=== PATIENT | male | born 1945 | race Caucasian/White ===

== ENCOUNTER 2016-11-09 10:59 | Emergency (ER) | payer OTHER ==
[~2016-11-09] VITALS: Ht 177.8 cm; Wt 87.1 kg
--- NOTE | 2016-11-09 12:43 | ED GI/GU/ABDOMINAL COMPLAINT ---
History of Present Illness General Chief Complaint: Male Genitourinary Problems Stated Complaint: UTI?? Source: patient, old records Exam Limitations: no limitations Vital Signs & Intake/Output Vital Signs & Intake/Output Vital Signs Date Time Temp Pulse Resp B/P Pulse O2 O2 Flow FiO2 Ox Delivery Rate 11/09 1331 96.0 62 16 106/62 97 Room Air 11/09 1137 96.4 67 20 105/59 99 Room Air Room Air Allergies Coded Allergies: No Known Allergies (04/01/16) Reconcile Medications Phenazopyridine HCl (Pyridium) 200 MG TABLET 1 TAB PO TID DYSUIRA Triage Note: PT TO ED BURNING WITH URINATION X 1 WEEK. PT STATING HX OF PROSTATE 2011, CALLED DR LAZO AND TOLD TO COME TO ED. Triage Nurses Notes Reviewed? yes HPI: Patient present with a 2 day history of dysuria. Positive frequency and hesitancy. Similar symptoms in the past when his head UTIs. Patient denies any fevers or chills. There is no nausea or vomiting. Patient denies any pain except when he is urinating. Patient has not noticed any blood or blood clots in his urine. Past History Travel History Traveled to [place] past 21 day No Medical History Any Pertinent Medical History? 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 No Review of Systems Review of Systems Constitutional: Reports: no symptoms. EENTM: Reports: no symptoms. Respiratory: Reports: no symptoms. Cardiovascular: Reports: no symptoms. GI: Reports: no symptoms. Genitourinary: Reports: see HPI, dysuria. Musculoskeletal: Reports: no symptoms. Skin: Reports: no symptoms. Neurological/Psychological: Reports: no symptoms. Hematologic/Endocrine: Reports: no symptoms. Immunologic/Allergic: Reports: no symptoms. All Other Systems: Reviewed and Negative Physical Exam Physical Exam General Appearance: well developed/nourished, alert, awake, mild distress Head: atraumatic Eyes: Bilateral: PERRL, EOMI. Neck: normal inspection, supple Respiratory: normal breath sounds, chest non-tender, no respiratory distress, lungs clear Cardiovascular: regular rate/rhythm, normal peripheral pulses Gastrointestinal: normal bowel sounds, soft, non-tender, no organomegaly Back: NO cva TENDERNESS Neurologic/Psych: no motor/sensory deficits, awake, alert, oriented x 3, normal gait, normal mood/affect Core Measures ACS in differential dx? No Severe Sepsis Present: No Septic Shock Present: No Progress Differential Diagnosis: urinary retention, UTI/pyelo Plan of Care: Orders Procedure Date/time Status Add-on Test (ER Only) 11/09 1330 Active URINALYSIS 11/09 1138 Complete Laboratory Tests 11/09/16 1237: Urine Color YEL, Urine Clarity CLEAR, Urine pH 7.0, Ur Specific [place] 1.015, Urine Protein NEG, Urine Ketones NEG, Urine Nitrite NEG, Urine Bilirubin NEG, Urine Urobilinogen 0.2, Ur Leukocyte Esterase NEG, Ur Microscopic SEDIMENT EXAMINED, Urine RBC 10-15 H, Urine WBC 5-10 H, Ur Epithelial Cells FEW, Urine Bacteria RARE H, Hyaline Casts 3-5 H, Urine Hemoglobin TRACE-INTACT H, Urine Glucose NEG Initial ED EKG: none Comments: Post void residual 0. Departure Departure Disposition: HOME OR SELF CARE Condition: Stable Clinical Impression Primary Impression: Dysuria Referrals: TOMASZ DOMINIQUE,GURMEET Frausto (PCP/Family) Additional Instructions: Follow-up with Dr. Lazo. Take Pyridium as prescribed. The Pyridium will turn all other body fluids orange including tears and your urine. Return if he develop any fevers or chills, nausea or vomiting or for any concerns. Departure Forms: Customer Survey General Discharge Information Prescriptions: Current Visit Scripts Phenazopyridine HCl (Pyridium) 1 TAB PO TID #9 TAB
[2016-11-09 13:31] VITALS: BP 106/62
[2016-11-09] MEDS ORDERED: PYRIDIUM200 M1 PO (13:38)
== END 2016-11-09 13:44 ==
LOC: ERH 10:59
DX: R30.0 Dysuria (principal)
CPT/HCPCS: 81001

== ENCOUNTER → 2017-02-18 | Day surgery (SDC) | payer OTHER ==
[~2017-02-18] VITALS: Ht 180.3 cm; Wt 87.1 kg
[~2017-02-18] MED LIST: AMBIEN10 M1 PO; ATORVASTATIN CA80 M1 PO; BROMSITE5 ML OS; DULOXETINE HCL20 MG PO; METOPROLOL ER PO; MYRBETRIQ25 M1 PO; NITROGLYCERIN1 EAC3 TD; PYRIDIUM200 M1 PO; RANEXA1000 M1 PO; VALSARTAN-HCTZ1 EAC2 PO
--- NOTE | 2017-02-18 14:07 | Operative Report ---
Operative/Inv Procedure Report Surgery Date: 02/18/17 Name of Procedure: cystoscopY; laser urethral stricturotomy Pre-Operative Diagnosis: urethral stricture Post-Operative Diagnosis: same Estimated Blood Loss: scant Surgeon/Poultry Culler: LAURI GREER MD Anesthesia: moderate sedation Drains: 16 fr. minto tip. Complications: none Operative/Procedure Note Note: The patient was taken to the operating room and placed on the OR table in supine position. Timeout was performed, with the patient awake, in order to confirm, and other pertinent perioperative information. After adequate anesthesia and antibiotics the patient was then placed lithotomy stirrups draped and prepped in usual surgical fashion. A 22 German cystoscope sheath with a 30 angle lens was inserted under direct visualization. Upon entering the distal bulbar urethra, a narrow stricture/scar tissue was seen with a very narrow lumen. A 0.038 Glidewire was inserted into the cystoscope and advanced into the narrow aperture without difficulty. At this point the diode laser was then inserted through the LASER cystoscope. The laser fiber was extended beyond the cystoscope, and positioned away from the gluide wire that was directly visible. With the laser fiber placed at the 12 o'clock position in direct contact with the stricture, the laser was fired in order to create a stricturotomy at the 12 o'clock position of the scar tissue. The laser was disengaged and removed. The 26 Fr. laser cystoscope was then able to enter the bulbar urethra, through the obstructing prostate, and the bladder without significant difficulty. The bladder was noted to be free of tumor, free of stone, with signficant trabeculation, and was then drained via the cystoscope. The cystoscope was then retracted back to the level of the urethral stricture. The cystoscope was then removed. A 20Fr./5cc costello was inserted easily draining clear fluid, and the balloon was filled with 5cc sterile water. All sponge needle and instrument count were correct at the of the case. The patient tolerated procedure was then taken to the recovery room in satisfactory condition. His discharge home with antibiotics and pain medication, and to follow up in 1-2 weeks' time. Discharge Disposition: Same Day Admissions CC: LAURI GREER MD
== END ==
LOC: STS 03:08
DX: N35.9 Urethral stricture, unspecified (principal); N40.1 Benign prostatic hyperplasia with lower urinary tract symptoms; R39.12 Poor urinary stream; Z85.46 Personal history of malignant neoplasm of prostate; I10 Essential (primary) hypertension
CPT/HCPCS: 36415; 93005; 93010; J0131; J1885; J2250

== ENCOUNTER → 2017-10-07 | Day surgery (SDC) | payer OTHER ==
[~2017-10-07] VITALS: Ht 180.3 cm; Wt 87.1 kg
[~2017-10-07] MED LIST changes: +MULTIVITAMINS1 EAC9 PO; +TOPROL XL25 M1 PO
[2017-10-07 09:57] LABS: ABSOLUTE BASOPHIL COUNT 0 /CUMM (0.0-0.2); ABSOLUTE EOSINOPHIL COUNT 0.2 /CUMM (0.0-0.7); ABSOLUTE GRANULOCYTE CT 4.2 /CUMM (1.4-6.5); ABSOLUTE LYMPH COUNT 1.4 /CUMM (1.2-3.4); ABSOLUTE MONOCYTE COUNT 0.6 /CUMM (0.10-0.60); BASOPHIL % 0.5 % (0.0-2.0); EOSINOPHIL % 3.6 % (0-5); GRANULOCYTE % 65.6 % (42.2-75.2); HEMATOCRIT 47.6 % (42-52); MEAN CORPUSCULAR HGB 32.3 PG (27.0-31.0); MEAN CORPUSCULAR HGB CONC 34.5 G/DL (33.0-37.0); MEAN CORPUSCULAR VOLUME 93.6 FL (80.0-94.0); MEAN PLATELET VOLUME 8.4 FL (7.4-10.4); PLATELET COUNT 130 /CUMM (130-400); RBC DISTRIBUTION WIDTH 12.9 % (11.5-14.5); RED BLOOD CELL CT 5.09 /CUMM (4.70-6.10); WHITE BLOOD CELL COUNT 6.4 /CUMM (4.8-10.8)
--- NOTE | 2017-10-14 08:06 | Operative Report ---
Operative/Inv Procedure Report Surgery Date: 10/07/17 Name of Procedure: DVIU with diode laser, cystoscopy. Pre-Operative Diagnosis: bulbar urethral stricture. Post-Operative Diagnosis: same Estimated Blood Loss: scant Surgeon/Electromedical Service Engineer: Bharat Lazo MD Anesthesia: moderate sedation Drains: 20Fr. costello Complications: none Condition: improved Operative Indication: dribbling, weak stream. Operative/Procedure Note Note: The patient was taken to the operating room and placed on the OR table in supine position. Timeout was performed, with the patient awake, in order to confirm, and other pertinent perioperative information. After adequate anesthesia, and antibiotics, the patient was then placed lithotomy stirrups draped and prepped in usual surgical fashion. A 26 Telugu LASER continuous flow cystoscope sheath with a 30 angle lens was inserted under direct visualization. Upon entering the distal bulbar urethra, a narrow stricture/scar tissue was seen with a very narrow lumen. A 0.038 Glidewire was inserted into the cystoscope, and was barely advanced into the narrow aperture without difficulty. At this point the diode laser was then inserted through the LASER cystoscope. The diode laser fiber was extended beyond the cystoscope, and positioned away from the gluide wire that was directly visible. With the laser fiber side firing aperture positioned at the 12 o'clock, the laser was activated. The diode laser was easily able to create a stricturotomy at the 12 o'clock position of the urethral scar tissue. Hemostasis was evident. The laser fiber was disengaged and removed. The 26 Fr. laser cystoscope was then able to enter the now open bulbar urethra, and into the bladder without significant difficulty. The bladder was noted to be free of tumor, free of stone, with signficant trabeculation. The guide wire was then reinserted through the cystoscope, and left in place, as the cystoscope was removed. A 20 Fr. [place] tip costello was rail-roaded over the wire, into the bladder draining clear fluid. The [place] tip costello balloon was filled with 5cc sterile water, then the guide wire was removed. All sponge needle and instrument count were correct at the of the case. The patient tolerated procedure well, and was then taken to the recovery room in satisfactory condition. His discharge home with antibiotics and pain medication , and to follow up in 2 weeks' time. Findings: tight bulbar urethral stricture Discharge Disposition: Same Day Admissions CC: [place] DOMINIQUE,Bharat
== END ==
LOC: STS 01:34
PROVIDERS: Urology
DX: N35.9 Urethral stricture, unspecified (principal); N40.1 Benign prostatic hyperplasia with lower urinary tract symptoms; R39.14 Feeling of incomplete bladder emptying; Z85.46 Personal history of malignant neoplasm of prostate; I10 Essential (primary) hypertension
CPT/HCPCS: 36415; 93005; 93010; J2250

== ENCOUNTER 2017-10-17 12:03 | Emergency (ER) | payer OTHER ==
[~2017-10-17] VITALS: Ht 177.8 cm; Wt 82.6 kg
[2017-10-17 12:24] VITALS: BP 136/82
--- NOTE | 2017-10-17 13:35 | ED GENERAL ADULT ---
History of Present Illness General Chief Complaint: General Adult Stated Complaint: GEN ADULT - DOES NOT LIKE PO MEDS Source: patient, old records Exam Limitations: no limitations Vital Signs & Intake/Output Vital Signs & Intake/Output Vital Signs Date Time Temp Pulse Resp B/P B/P Pulse O2 O2 Flow FiO2 Mean Ox Delivery Rate 10/17 1525 97 Room Air 10/17 1224 96.9 96 16 136/82 96 Room Air Room Air Allergies Coded Allergies: No Known Allergies (04/01/16) Reconcile Medications Atorvastatin Calcium 80 MG TABLET 1 TAB PO DAILY CHOLESTEROL (Reported) Duloxetine HCl 20 MG CAPSULE.DR 1 CAP PO DAILY ANXIETY (Reported) Metoprolol Succ XL (Toprol XL) 25 MG TAB 1 TAB PO DAILY HEART/BP (Reported) Multiple Vitamin (Multivitamins) 1 EACH TABLET 1 TAB PO DAILY SUPPLEMENT ( Reported) Valsartan/Hydrochlorothiazide (Valsartan-Hctz 160-25 MG Tab) 160 MG-25 MG TABLET 1 TAB PO DAILY BP (Reported) Zolpidem Tartrate (Ambien) 10 MG TABLET 1 TAB PO PRN SLEEP (Reported) Triage Note: TRIAGE: 72 Y/O MALE PRESENTS S/P RECENT CYSTOSCOPY BUT CANNOT TOLERATE PO ANTIBIOTICS. "I CANNOT TAKE THESE PILLS ANY LONGER. MY FACE IS RED, ETC." Triage Nurses Notes Reviewed? yes HPI: 72-year-old male history of coronary artery disease, recurrent urethral stricture for which she was recently dilated by Dr. Lazo last week which he has been on Cipro and Augmentin presents emergency room for evaluation stating that he has had redness to his face and has felt off balance on antibiotics. The patient denies any difficulty swallowing or difficulty breathing. No nausea vomiting diarrhea no shortness of breath. No urinary retention dysuria urgency frequency. Fever chills he is not call Dr. Lazo He has had several urethral strictures in the past (Nova CARNES,Jose) Past History Travel History Traveled to [place] past 21 day No Medical History Any Pertinent Medical History? 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 No (Jose Rashid) Review of Systems Review of Systems Constitutional: Reports: see HPI. Comments Review of systems: See HPI, All other systems negative. Constitutional, no chills no fever, HEENT: no sore throat no congestion Cardiovascular: No chest pain , Skin: no rashes, no change in skin Respiratory: No dyspnea no cough no sputum GI: No nausea no vomiting, no diarrhea, : No dysuria No hematuria, no frequency Muscle skeletal: No joint pain, no back pain Neurologic: , no headache Heme/endocrine: No bruising Immunology: No lymphadenopathy (Jose Rashid) Physical Exam Physical Exam General Appearance: well developed/nourished, no apparent distress, alert Comments: Well-developed well-nourished patient in no apparent distress. HEENT: Atraumatic, extraocular motion intact no trismus no uvula displacement pharynx is normal no drooling no change in voice Neck: Supple, FROM Back: FROM Cardiovascular: Regular rate and rhythms no murmur Respiratory: No respiratory distress. Patient speaking in full complete sentences. Breath sounds clear to auscultation bilaterally: NO W/R/R Abdomen: Soft nontender no rebound no guarding Extremities: full range of motion Neuro: awake, alert, and oriented to person, place and time. There were no obvious focal neurologic abnormalities. Skin: Warm & dry;No appreciable rash on exposed skin, no urticaria Psych: Mood affect normal, normal memory normal judgment. Core Measures ACS in differential dx? No CVA/TIA Diagnosis: No Sepsis Present: No Sepsis Focused Exam Completed? No (Jose Rashid) Progress Differential Diagnoses I considered the following diagnoses in my evaluation of the patient: Urinary retention UTI pyelonephritis adverse reaction to medication allergic reaction anaphylaxis Plan of Care: Orders Procedure Date/time Status CULTURE,URINE 10/17 1344 Active URINALYSIS 10/17 1335 Complete COMPREHENSIVE METABOLIC PANEL 10/17 1335 Complete CBC WITHOUT DIFFERENTIAL 10/17 1335 Complete Laboratory Tests 10/17/17 1520: Anion Gap 13, Estimated GFR > 60, BUN/Creatinine Ratio 37.3 H, Glucose 108 H, Calcium 10.1, Total Bilirubin 0.5, AST 27, ALT 64, Alkaline Phosphatase 104, Total Protein 7.3, Albumin 4.4, Globulin 2.9, Albumin/Globulin Ratio 1.5, CBC w Diff NO MAN DIFF REQ, RBC 4.93, MCV 94.4 H, MCH 31.4 H, MCHC 33.3, RDW 13.1, MPV 8.6, Gran % 71.2, Lymphocytes % 17.0 L, Monocytes % 8.7, Eosinophils % 2.8, Basophils % 0.3, Absolute Granulocytes 4.6, Absolute Lymphocytes 1.1 L, Absolute Monocytes 0.6, Absolute Eosinophils 0.2, Absolute Basophils 0, Urine Color YEL, Urine Clarity CLEAR, Urine pH 6.0, Ur Specific [place] 1.025, Urine Protein NEG, Urine Ketones NEG, Urine Nitrite NEG, Urine Bilirubin NEG, Urine Urobilinogen 0.2, Ur Leukocyte Esterase NEG, Ur Microscopic SEDIMENT EXAMINED, Urine RBC FEW H, Urine WBC 1-3 H, Ur Epithelial Cells RARE, Urine Bacteria RARE H, Hyaline Casts RARE H, Urine Mucus RARE, Urine Hemoglobin SMALL H, Urine Glucose NEG Microbiology 10/17 1520 URINE ROUT: Urine Culture - RECD Patient is resting in no apparent distress no signs of an allergic reaction no rash labs ordered. Case discussed with Dr. Caldera agrees with plan I spoke with Dr. lazo- regarding the patient agrees with plan Will have him stop both antibiotics I spoke with Dr. Lazo regarding all the patient's labs he advised given the negative urine culture from last week to stop both antibiotics and have the patient follow-up with him. Case discussed with Dr. Caldear agrees with plan I discussed with the patient at length all of their results. I had an extensive conversation regarding need for close follow up with their primary care physician this week as well as return precautions. I answered all of their questions, they feel comfortable with the plan and follow-up care. Initial ED EKG: none (Jose Rashid) Departure Departure Disposition: HOME OR SELF CARE Condition: Stable Clinical Impression Primary Impression: Adverse reaction to antibiotic Referrals: [place] DOMINIQUE,Bharat Hines MD,Vincent Frausto (PCP/Family) Additional Instructions: Follow-up with your primary care physician and Dr. Lazo this week. Stop both antibiotics. Return anytime sooner with any concerns. Departure Forms: Customer Survey General Discharge Information (Jose Rashid) PA/REGIONAL ENGAGEMENT CONSULTANT Co-Sign Statement Statement: ED Attending supervision documentation- [] I saw and evaluated the patient. I have also reviewed all the pertinent lab results and diagnostic results. I agree with the findings and the plan of care as documented in the PA's/REGIONAL ENGAGEMENT CONSULTANT's documentation. [x] I have reviewed the ED Record and agree with the PA's/REGIONAL ENGAGEMENT CONSULTANT's documentation. [] Additions or exceptions (if any) to the PAs/REGIONAL ENGAGEMENT CONSULTANT's note and plan are summarized below: [] (Werner BRASHER,Hilario Olivier) Critical Care Note Critical Care Note Critical Care Time: non-applicable (Jose Rashid)
[2017-10-17 15:48] LABS: ABSOLUTE BASOPHIL COUNT 0 /CUMM (0.0-0.2); ABSOLUTE EOSINOPHIL COUNT 0.2 /CUMM (0.0-0.7); ABSOLUTE GRANULOCYTE CT 4.6 /CUMM (1.4-6.5); ABSOLUTE LYMPH COUNT 1.1 /CUMM (1.2-3.4); ABSOLUTE MONOCYTE COUNT 0.6 /CUMM (0.10-0.60); BASOPHIL % 0.3 % (0.0-2.0); EOSINOPHIL % 2.8 % (0-5); GRANULOCYTE % 71.2 % (42.2-75.2); HEMATOCRIT 46.5 % (42-52); MEAN CORPUSCULAR HGB 31.4 PG (27.0-31.0); MEAN CORPUSCULAR HGB CONC 33.3 G/DL (33.0-37.0); MEAN CORPUSCULAR VOLUME 94.4 FL (80.0-94.0); MEAN PLATELET VOLUME 8.6 FL (7.4-10.4); PLATELET COUNT 162 /CUMM (130-400); RBC DISTRIBUTION WIDTH 13.1 % (11.5-14.5); RED BLOOD CELL CT 4.93 /CUMM (4.70-6.10); WHITE BLOOD CELL COUNT 6.4 /CUMM (4.8-10.8)
== END 2017-10-17 16:22 ==
LOC: ERH 12:03
PROVIDERS: Physician Assistant Medical
DX: T36.95XA Adverse effect of unspecified systemic antibiotic, initial encounter (principal)
CPT/HCPCS: 81001; 87086

== ENCOUNTER 2018-03-01 18:13 | Inpatient (IN) | payer OTHER ==
[~2018-03-01] VITALS: Ht 180.3 cm; Wt 87.1 kg
[~2018-03-01 18:13] MED LIST changes: +FINASTERIDE5 M1 PO; +NITROGLYCERIN1 EACH TOP; +OXYBUTYNIN CHLOR5 M2 PO
--- NOTE | 2018-03-01 19:56 | ULTRASOUND REPORT ---
EXAMINATION: US RETROPERITONEAL COMPLETE (RENAL) CLINICAL INFORMATION: Persistent UTI. COMPARISON: Renal ultrasound March 10, 2016 TECHNIQUE: Real-time imaging of the kidneys and bladder. FINDINGS: RIGHT KIDNEY: 11.9 x 5.4 x 5.7 cm (SAG x AP x TRV). The kidney is normal in size, contour, and echogenicity. Renal cortical thickness is normal. No calculi or focal parenchymal lesions. No hydronephrosis. LEFT KIDNEY: 12.1 x 6.5 x 4.9 cm (SAG x AP x TRV). The kidney is normal in size, contour, and echogenicity. Renal cortical thickness is normal. No calculi or focal parenchymal lesions. No hydronephrosis. BLADDER: Well-distended and normal. Bilateral ureteral jets are demonstrated. Prevoid bladder volume is 342 mL. Postvoid bladder volume is 155 mL. The prostate could not be visualized-no prostatic tissue is seen. IMPRESSION: The kidneys appear normal. There is a large 155 cc post void residual. The prostate was not visualized..
--- NOTE | 2018-03-01 20:07 | ED GENERAL ADULT ---
History of Present Illness General Chief Complaint: General Adult Stated Complaint: RETURNED FOR ADMIT Source: patient Exam Limitations: no limitations Vital Signs & Intake/Output Vital Signs & Intake/Output Vital Signs Date Time Temp Pulse Resp B/P B/P Pulse O2 O2 Flow FiO2 Mean Ox Delivery Rate 03/01 2258 98.2 78 18 118/62 93 03/01 2201 97.8 78 18 134/78 97 Room Air 03/01 1947 Room Air 03/01 1823 97.1 86 18 121/60 94 Room Air Allergies Coded Allergies: No Known Allergies (04/01/16) Reconcile Medications Atorvastatin Calcium 80 MG TABLET 1 TAB PO DAILY CHOLESTEROL (Reported) Duloxetine HCl 20 MG CAPSULE.DR 1 CAP PO DAILY ANXIETY (Reported) Finasteride 5 MG TABLET 1 TAB PO DAILY BPH (Reported) Metoprolol Succ XL (Toprol XL) 25 MG TAB 1 TAB PO DAILY HEART/BP (Reported) Nitroglycerin (Nitroglycerin Patch) 0.4 MG/HOUR PATCH.TD24 1 PAT TOP DAILY HEART (Reported) Oxybutynin Chloride 5 MG TABLET 1 TAB PO DAILY BLADDER (Reported) Valsartan/Hydrochlorothiazide (Valsartan-Hctz 160-25 MG Tab) 160 MG-25 MG TABLET 1 TAB PO DAILY BP (Reported) Zolpidem Tartrate (Ambien) 10 MG TABLET 1 TAB PO PRN SLEEP (Reported) Triage Note: PT SEEN IN ER EARLIER AND WAS BEING ADMITTED FOR URINARY PROBLEMS, HAD TO LEAVE DUE TO HE HAD TOFIND SOMEWHERE FOR HIS DOGS, PT RETURNS FOR ADMISSION Triage Nurses Notes Reviewed? yes Onset: Gradual Duration: week(s): Timing: constant HPI: 73-year-old male with a history of BPH and recurrent UTIs sent in by Dr. Lazo for admission and IV antibiotics after 2 courses of failed outpatient oral antibiotics. Patient has recently failed a course of ciprofloxacin and Augmentin. Continues to have dysuria, penile pain, and urinary frequency/ urgency. Denies fevers, nausea, vomiting, hematuria. Patient was recently seen in the emergency department today for the same, but had to leave and arrange care for his pet, and now returns for evaluation. (Kiara CARNES,Lore) Past History Travel History Traveled to [place] past 21 day No Medical History Any Pertinent Medical History? 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 No (Lore Blanco) Review of Systems Review of Systems Constitutional: Reports: no symptoms. EENTM: Reports: no symptoms. Respiratory: Reports: no symptoms. Cardiovascular: Reports: no symptoms. GI: Reports: no symptoms. Genitourinary: Reports: see HPI. Musculoskeletal: Reports: no symptoms. Skin: Reports: no symptoms. Neurological/Psychological: Reports: no symptoms. Hematologic/Endocrine: Reports: no symptoms. Immunologic/Allergic: Reports: no symptoms. All Other Systems: Reviewed and Negative (Lore Blanco) Physical Exam Physical Exam General Appearance: well developed/nourished, no apparent distress, alert, awake , comfortable Head: atraumatic, normal appearance Eyes: Bilateral: normal appearance. Neck: normal inspection Respiratory: normal breath sounds, lungs clear Cardiovascular: regular rate/rhythm Gastrointestinal: soft, non-tender Back: normal inspection, no CVA tenderness Extremities: normal inspection Neurologic/Psych: awake, alert, oriented x 3, normal gait, normal mood/affect Skin: intact, normal color, warm/dry Core Measures ACS in differential dx? No CVA/TIA Diagnosis: No Sepsis Present: No Sepsis Focused Exam Completed? No (Lore Blanco) Progress Differential Diagnoses I considered the following diagnoses in my evaluation of the patient: [UTI versus renal abscess, low concern for pyelonephritis versus dehydration versus sepsis] Plan of Care: Orders Procedure Date/time Status Heart Healthy Diet 03/02 B Active CBC WITHOUT DIFFERENTIAL 03/02 600 Active BASIC ELECTROLYTES PLUS BUN&CR 03/02 600 Active Pathway - chart 03/01 230 Active House Staff 03/01 230 Active Code Status 03/01 2304 Active Weight 03/01 223 Complete Vital Signs 03/01 2234 Active Teach/Educate 03/01 2234 Active Pain Treatment and Response 03/01 2234 Active Nutritional Intake, Monitor 03/01 2234 Active Isolation 03/01 2234 Active Intake & Output 03/01 2234 Active Patient Care Conference 03/01 2234 Active Activity/Ambulation 03/01 2234 Active Patient Data 03/01 2052 Active ED Holding Orders 03/01 2042 Active Admit to inpatient 03/01 2042 Active Vital Signs 03/01 2042 Complete Code Status 03/01 2042 Complete Intake & Output 03/01 1947 Active VTE Mechanical Prophylaxis 03/01 UNK Active Vital Signs 03/01 UNK Active Current Medications Sig/Boo Start time Last Medication Dose Stop Time Status Admin Nitroglycerin 0.4 MG Q48 03/03 900 UNVr (Transderm Nitro 10MG (0.4 MG/Hr) Patch) Zolpidem Tartrate 10 MG QPM 03/02 2100 UNVr (Ambien) Atorvastatin Calcium 80 MG DAILY 03/02 900 UNVr (Lipitor) Duloxetine HCl 20 MG DAILY 03/02 900 UNVr (Cymbalta) Enoxaparin Sodium 40 MG DAILY 03/02 900 AC (Lovenox) Finasteride 5 MG DAILY 03/02 900 UNVr (Proscar) Losartan Potassium 50 MG DAILY 03/02 900 UNVr (Cozaar) Metoprolol Succinate 25 MG DAILY 03/02 900 UNVr (Toprol XL) Acetaminophen 650 MG Q6P PRN 03/01 2315 AC (Tylenol) Morphine Sulfate 2 MG Q4P PRN 03/01 2315 AC (Morphine) Oxycodone/ 1 TAB Q6P PRN 03/01 2315 AC Acetaminophen (Percocet) Ultrasound was unremarkable, no signs of renal or bladder abscess. UA is suspicious for UTI, culture sent, and patient covered with IV ceftriaxone. Labs were unremarkable, no leukocytosis, normal lactate. Discussed with hospitalist and will admit to gen med, Initial ED EKG: none (Kiara CARNES,Lore) Departure Departure Disposition: STILL A PATIENT Condition: Stable Clinical Impression Primary Impression: UTI (urinary tract infection) Referrals: Donny DOMINIQUE,Vincent Frausto (PCP/Family) Departure Forms: Customer Survey General Discharge Information Admission Note Spoke With: Sharath Marcelino MD Documentation of Exam: Documentation of any treatments & extenuating circumstances including Concerns Regarding Discharge (functional status, medication knowledge or non-compliance, living conditions, etc.) that warrant an admission rather than observation: [IV antibiotics, urology consultation, IV fluids, urine cultures] (Lore Blanco) PA/CUSTOMS INSPECTOR Co-Sign Statement Statement: ED Attending supervision documentation- [X] I saw and evaluated the patient. I have also reviewed all the pertinent lab results and diagnostic results. I agree with the findings and the plan of care as documented in the PA's/CUSTOMS INSPECTOR's documentation. [] I have reviewed the ED Record and agree with the PA's/CUSTOMS INSPECTOR's documentation. [] Additions or exceptions (if any) to the PAs/CUSTOMS INSPECTOR's note and plan are summarized below: [] The patient was awake alert oriented 3. No acute distress on my exam. (Werner BRASHER,Hilario Olivier) Critical Care Note Critical Care Note Critical Care Time: non-applicable (Lore Blanco)
--- NOTE | 2018-03-01 20:55 | History & Physical ---
Marlo Godoy 03/01/182053: General Information and HPI MD Statement: I have seen and personally examined DEANDRE DUTTON and documented this H&P. The patient is a 73 year old M who presented with a patient stated chief complaint of [dysuria]. Source of Information: patient Exam Limitations: no limitations History of Present Illness: 73 yo M with PMH of HTN, CAD, BPH, ureteral stricture s/p laser and urethral dilation (Sep 2017), and recurrent UTIs. He was sent in to ED by his urologist, after having two weeks of dysuria, frequency and penile pain. He came earlier to the ED but left due to his dog's ill health and returned again today. The patient says he saw his urologist last Wednesday (one week ago) after almost a week's worth of night time penile burning sensations especially after voiding. His urologist put him on Amoxicillin but patient says he persisted to have symptoms. Last night his symptoms worsened and he called his urologist in the morning who instructed him to go to the ED. His recurrent UTIs are complicated with pseudomonas sensitive to only gentamicin and aztreonam. He reports having an incident in [place] in February 2015, where he was admitted to the ICU after a urinary infection spread possibly to his blood. He reports having to get up more than 3-5 times in the night to urinate due to his BPH. He finds the post void burning excruciating. He reports having very little void volume and interrupted stream which worsens the pain. He denies hematuria or discharge. He denies systemic symptoms including headache, fever, chills, sore throat, diaphoresis, fatigue, nausea, vomiting, diarrhea, joint pain, abdominal tenderness, difficulty breathing, palpitations. Allergies/Medications Allergies: Coded Allergies: No Known Allergies (04/01/16) Home Med list Atorvastatin Calcium 80 MG TABLET 1 TAB PO DAILY CHOLESTEROL (Reported) Duloxetine HCl 20 MG CAPSULE.DR 1 CAP PO DAILY ANXIETY (Reported) Finasteride 5 MG TABLET 1 TAB PO DAILY BPH (Reported) Metoprolol Succ XL (Toprol XL) 25 MG TAB 1 TAB PO DAILY HEART/BP (Reported) Nitroglycerin (Nitroglycerin Patch) 0.4 MG/HOUR PATCH.TD24 1 PAT TOP DAILY HEART (Reported) Oxybutynin Chloride 5 MG TABLET 1 TAB PO DAILY BLADDER (Reported) Valsartan/Hydrochlorothiazide (Valsartan-Hctz 160-25 MG Tab) 160 MG-25 MG TABLET 1 TAB PO DAILY BP (Reported) Zolpidem Tartrate (Ambien) 10 MG TABLET 1 TAB PO PRN SLEEP (Reported) Past History Travel History Traveled to [place] past 21 day No Medical History Neurological: NONE EENT: NONE Cardiovascular: VALVE REPLACEMENT,ANGINA CARDIAC STENOSIS Respiratory: NONE Gastrointestinal: NONE Hepatic: NONE Renal: NONE Musculoskeletal: NONE Psychiatric: NONE Endocrine: NONE Blood Disorders: NONE Cancer(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 EENTM: Reports: see HPI. Cardiovascular: Reports: see HPI. Respiratory: Reports: see HPI. GI: Reports: see HPI. Genitourinary: Reports: see HPI. Musculoskeletal: Reports: see HPI. Skin: Reports: see HPI. Neurological/Psychological: Reports: see HPI. Hematologic/Endocrine: Reports: see HPI. Immunologic/Allergic: Reports: see HPI. All Other Systems: Reviewed and Negative Exam & Diagnostic Data Last 24 Hrs of Vital Signs/I&O Vital Signs Date Time Temp Pulse Resp B/P B/P Pulse O2 O2 Flow FiO2 Mean Ox Delivery Rate 03/018 98.2 78 18 118/62 93 03/01 2201 97.8 78 18 134/78 97 Room Air 03/01 1947 Room Air 03/01 1823 97.1 86 18 121/60 94 Room Air Intake & Output 03/02 0800 03/02 0000 03/01 1600 Intake Total 0 Output Total Balance 0 Intake, Oral 0 Patient 192 lb Weight Weight Bed scale Measurement Method Physical Exam General Appearance Alert, Oriented X3, Cooperative, No Acute Distress Skin No Rashes Skin Temp/Moisture Exam: Warm/Dry Sepsis Skin Exam (color): Normal for Ethnicity HEENT Atraumatic, PERRLA, EOMI Neck Supple Cardiovascular Regular Rate, Normal S1, Normal S2 Lungs Normal Air Movement Abdomen Normal Bowel Sounds, Soft Neurological Normal Gait, Normal Speech Extremities No Tenderness/Swelling Vascular Normal Pulses Last 24 Hrs of Labs/[place]: Microbiology 03/02 0115 URINE ROUT: Urine Culture - RECD Assessment/Plan Assessment: Urine Cx Pending CBC Pending BMP Pending US Kidney The kidneys appear normal. No hydronephrosis. There is a large 155 cc post void residual. The prostate was not visualized. Problem List: 1. UTI (failing outpatient treatment) 2. Chronic Conditions Admit to general medicine Followup urine culture with sensitivities Monitor ins and outs Bladder scan Monitor CBC and BMP Ceftazifime (may need to change) Continue home medications DVT prophylaxis Full code As Ranked By This Provider Problem List: 1. UTI (urinary tract infection) 2. Dysuria 3. Adverse reaction to antibiotic Core Measures/Misc (05/09) Acute Coronary Syndrome ACS Diagnosis: No Congestive Heart Failure Congestive Heart Failure Diagnosis No Cerebrovascular Accident CVA/TIA Diagnosis: No VTE (View Protocol) VTE Risk Factors Age>40 No Mechanical VTE Prophylaxis d/t N/A MechProphylax Ordered No VTE Pharm Prophylaxis d/t NA PharmProphylax ordered Sepsis (View protocol) Sepsis Present: No If YES complete Sepsis Event Note If YES complete Sepsis Event Note Gayathri DOMINIQUEKaren 03/01/182058: Core Measures/Misc (05/09) Sepsis (View protocol) If YES complete Sepsis Event Note If YES complete Sepsis Event Note Resident Review Statement Resident Statement: examined this patient, discussed with internet consultant, agreed with internet consultant, reviewed EMR data (avail), discussed with nursing, reviewed images Other Findings: 72-year-old male history of coronary artery disease, recurrent urethral stricture s/p cystoscopy and urethral dilatation and recurrent UTIs presents with dysuria, penile pain, and urinary frequency for the past 1 week. Per the patient he has burning with urination for the past one week and was started on Amoxicillin by Dr. Lazo, which he has been taking without any relief. Last night his symptoms got worse, with dysuria (end of urination) and penile pain. He called Dr. Lazo in the morning who sent him in for further evaluation. Denies any Fever/chills, abdominal or back pain or Nausea/Vomiting. Patient is from [facility] and has been treated there with multiple abx including cefuroxime, ciprofloxacin and gentamicin. Has a history of pseudomonal infection sensitive to amikacin and gentamicin only. Vitals on admission were temp of 96.2, heart rate 70, respiratory rate 20, BP 11 /65 and O2 sats 97% on room air. Labs showed an anion gap of 17 and BUN of 51, otherwise unremarkable. Positive UA with leukocyte esterase and 50-25 WBCs. Renal ultrasound appeared normal. Problem list; 1. UTI, failed outpatient treatment 2. Chronic medical conditions - Admit the patient to general medicine floor. - Start the patient on IV ceftazidime, if no improvement symptoms can change to gentamicin. - Follow up Urine culture - Urology consult with dr. Lazo. - Ins and outs - Monitor CBC - Vitals every shift - Continue home medications DVt prophylaxis; ALPS and S/C Lovenox Patient is full code Sharath Marcelino MD 03/01/18 2240: Core Measures/Misc (05/09) Sepsis (View protocol) If YES complete Sepsis Event Note If YES complete Sepsis Event Note Attending MD Review Statement Attending Statement Attending MD Statement: examined this patient, discuss w/resident/PA/PROFESSOR OF RELIGIOUS STUDIES, agreed w/resident/PA/PROFESSOR OF RELIGIOUS STUDIES, reviewed EMR data (avail) Attending Assessment/Plan: 73M PMH HTN, CAD, BPH, ureteral stricture s/p laser therapy in September 2017, recurrent UTI's sent in by urology for UTI failing outpatient therapy. Has 3 weeks of dysuria, hesitancy, and penile pain. No systemic symptoms or signs of sepsis. Treated with Cipro and then Augmentin with no improvement in symptoms. Exam benign, normal WBC, afebrile. Urine culture from 02/21 negative. Has a history of resistant Pseudomonas. 1. UTI 2. Failure of outpatient treatment Plan: Admit to general medicine, urine culture, Ceftazidime, continue home meds, DVT PPx.
--- NOTE | 2018-03-01 22:42 | Admission Certification ---
Admission Certification Certification Statement - As attending physician, I certify that at the time of - admission, based on clinical presentation, severity of - symptoms, need for further diagnostic testing and - therapeutic interventions, and risk of adverse outcomes - without in-hospital treatment, in my clinical assessment, - this patient requires an acute hospital stay for a minimum - of two nights or longer. I have also considered psychsocial - factors such as support system, advanced age, financial - issues, cognitive issues, and failed out-patient treatments, - past re-admission history, safety of patient, and lack of - compliance as applicable. Specific rationale supporting this admission is: UTI with history of ureteral strictures failing outpatient antibiotics x 2
[2018-03-01 22:58] VITALS: BP 118/62
[2018-03-02 05:51] VITALS: BP 130/62
[2018-03-02 08:41] LABS: ABSOLUTE BASOPHIL COUNT 0 /CUMM (0.0-0.2); ABSOLUTE EOSINOPHIL COUNT 0.2 /CUMM (0.0-0.7); ABSOLUTE GRANULOCYTE CT 3.4 /CUMM (1.4-6.5); ABSOLUTE LYMPH COUNT 1.4 /CUMM (1.2-3.4); ABSOLUTE MONOCYTE COUNT 0.6 /CUMM (0.10-0.60); BASOPHIL % 0.3 % (0.0-2.0); EOSINOPHIL % 3.4 % (0-5); HEMATOCRIT 43.4 % (42-52); MEAN CORPUSCULAR HGB 32.1 PG (27.0-31.0); MEAN CORPUSCULAR HGB CONC 34.4 G/DL (33.0-37.0); MEAN CORPUSCULAR VOLUME 93.2 FL (80.0-94.0); PLATELET COUNT 136 /CUMM (130-400); RBC DISTRIBUTION WIDTH 12.9 % (11.5-14.5); RED BLOOD CELL CT 4.66 /CUMM (4.70-6.10); WHITE BLOOD CELL COUNT 5.6 /CUMM (4.8-10.8)
--- NOTE | 2018-03-02 09:16 | PN- Housestaff ---
Marcus Perry 03/02/1815: Subjective Follow-up For: UTI failed outpt management w/ amoxicillin Subjective: Patient seen and examined at bedside. Patient was admitted last night, given ceftaz edema IV, had received 3 doses at time of interview. Patient states that he is feeling significantly better, denies any urinary complaints outside of his normal increased frequency secondary to BPH. Patient states that he did not have any pain, does not have any fevers/chills/night sweats, states good p.o. intake. Denies chest pain/shortness of breath/lower extremity edema. No acute events Review of Systems Constitutional: Reports: see HPI. Objective Last 24 Hrs of Vital Signs/I&O Vital Signs Date Time Temp Pulse Resp B/P B/P Pulse O2 O2 Flow FiO2 Mean Ox Delivery Rate 03/02 0931 60 130/62 03/02 0928 60 130/62 03/02 0551 97.5 60 20 130/62 93 Room Air 03/01 2258 98.2 78 18 118/62 93 03/01 2201 97.8 78 18 134/78 97 Room Air 03/01 1947 Room Air 03/01 1823 97.1 86 18 121/60 94 Room Air Intake & Output 03/02 1600 03/02 0800 03/02 0000 Intake Total 360 0 Output Total 450 Balance -90 0 Intake, Oral 360 0 Output, Urine 450 Patient 192 lb Weight Weight Bed scale Measurement Method Physical Exam General Appearance: Alert, Oriented X3, Cooperative, No Acute Distress Skin Temp/Moisture Exam: Warm/Dry Cardiovascular: Regular Rate, Normal S1, Normal S2 Lungs: Clear to Auscultation, Normal Air Movement Abdomen: Soft, No Tenderness, no CVA tenderness; no suprapubic tenderness Neurological: Sensation Intact Extremities: No Edema Current Medications: Current Medications Sig/Boo Start time Last Medication Dose Route Stop Time Status Admin Acetaminophen 650 MG Q6P PRN 03/01 2315 AC PO Atorvastatin Calcium 80 MG 1700 03/02 1700 AC PO Ceftazidime 1,000 MG IQ8 03/02 0000 AC 03/02 IV 0818 Ceftriaxone Sodium 0 .STK-MED ONE 03/01 2017 DC .ROUTE Ceftriaxone Sodium 1,000 MG ONCE ONE 03/01 2015 DC 03/01 IV 03/01 Docusate Sodium 100 MG DAILY 03/02 0900 AC 03/02 PO 0817 Duloxetine HCl 20 MG DAILY 03/02 900 AC PO Enoxaparin Sodium 40 MG DAILY 03/02 900 AC 03/02 SC 0818 Finasteride 5 MG DAILY 03/02 900 AC PO Losartan Potassium 50 MG DAILY 03/02 900 AC PO Metoprolol Succinate 25 MG DAILY 03/02 900 AC PO Morphine Sulfate 2 MG Q4P PRN 03/01 2315 AC IV Nitroglycerin 0.4 MG DAILY 03/02 900 AC TOP Oxycodone/ 1 TAB Q6P PRN 03/01 2315 AC 03/02 Acetaminophen PO 0058 Senna 187 MG DAILY 03/02 900 AC 03/02 PO 0817 Zolpidem Tartrate 10 MG QPM 03/02 2100 AC PO Last 24 Hrs of Lab/[place] Results Last 24 Hrs of Labs/Mics: Laboratory Tests 03/02/18 0700: Anion Gap 11, Estimated GFR > 60, BUN/Creatinine Ratio 54.0 H, CBC w Diff NO MAN DIFF REQ, RBC 4.66 L, MCV 93.2, MCH 32.1 H, MCHC 34.4, RDW 12.9, MPV 9.0, Gran % 61.0, Lymphocytes % 24.7, Monocytes % 10.6 H, Eosinophils % 3.4, Basophils % 0.3, Absolute Granulocytes 3.4, Absolute Lymphocytes 1.4, Absolute Monocytes 0.6, Absolute Eosinophils 0.2, Absolute Basophils 0 Microbiology 03/02 0115 URINE ROUT: Urine Culture - RECD Assessment/Plan Assessment: Levi is a 73-year-old man was a past medical history of hypertension, coronary artery disease, BPH, ureteral stricture status post laser therapy in September 2017, recurrent UTIs, sent by his private urologist for a UTI of these experienced for 1 week which failed outpatient therapy with amoxicillin. He is admitted for treatment of his UTI with IV antibiotics after failure of outpatient therapy #UTI DVT prophylaxis IV access Tolerating her diet Disposition Problem List: 1. UTI (urinary tract infection) Pain Ratin Pain Location: Suprapubic region Pain Goal: Pain 4 or less Pain Plan: Pain pathway Tomorrow's Labs & Rationales: Follow-up on urine culture Svitlana Decker 03/02/18 1147: Attending MD Review Statement Attending Statement Attending MD Statement: examined this patient, discuss w/resident/PA/OUTREACH CLINICIAN, agreed w/resident/PA/OUTREACH CLINICIAN, discussed with family, reviewed EMR data (avail), discussed with nursing, discussed with case mgmt, reviewed images, amended to note Attending Assessment/Plan: 73M PMH HTN, CAD, BPH, ureteral stricture s/p laser therapy in September 2017, recurrent UTI's sent in by urology for UTI failing outpatient therapy. Has 3 weeks of dysuria, hesitancy, and penile pain. Treated with Cipro and then Augmentin with no improvement in symptoms. Urine culture from 02/21 negative. Has a history of resistant Pseudomonas. Follows Dr Lazo outpatient urology. Recently seen him outpatient. 1. UTI 2. Failure of outpatient treatment Plan: Continue general medicine, urine culture, Ceftazidime, continue home meds, DVT PPx, urology consult.
[2018-03-02 15:09] VITALS: BP 130/70
[2018-03-02 21:58] VITALS: BP 110/64
[2018-03-03 05:51] VITALS: BP 118/60
--- NOTE | 2018-03-03 07:04 | PN- Housestaff ---
See Addendum Subjective Follow-up For: UTI failed outpt therapy Subjective: Patient seen and examined at bedside today. Patient states that yesterday he had one episode of burning urination. Patient states that he did not experience any frequency or urgency, but did have some pain in his penis on urination. Denies hematuria, denies strange smells. Denies discharge. No testicular pain. Patient states that he also has not had a bowel movement since Wednesday, is complaining of some abdominal fullness and distention. Patient denies any fevers/chills/chest pain/shortness of breath/lower extremity edema Review of Systems Constitutional: Reports: see HPI. Objective Last 24 Hrs of Vital Signs/I&O Vital Signs Date Time Temp Pulse Resp B/P B/P Pulse O2 O2 Flow FiO2 Mean Ox Delivery Rate 03/03 0826 70 126/72 03/03 0825 70 126/72 03/03 0551 97.8 60 20 118/60 93 Room Air 03/02 2158 97.2 68 20 110/64 94 Room Air 03/02 1509 97.4 62 16 130/70 95 Intake & Output 03/03 1600 03/03 0800 03/03 0000 Intake Total 165 Output Total 780 850 Balance -780 -685 Intake, Oral 165 Number 0 0 Bowel Movements Output, Urine 780 850 Physical Exam General Appearance: Alert, Oriented X3, Cooperative, No Acute Distress Skin: No Breakdown Skin Temp/Moisture Exam: Warm/Dry Cardiovascular: Regular Rate, Normal S1, Normal S2 Lungs: Clear to Auscultation, Normal Air Movement Abdomen: Soft, No Tenderness Neurological: Sensation Intact Extremities: No Edema, Normal Pulses Current Medications: Current Medications Sig/Boo Start time Last Medication Dose Route Stop Time Status Admin Acetaminophen 650 MG Q6P PRN 03/01 2315 AC PO Atorvastatin Calcium 80 MG 1700 03/02 1700 AC PO Bisacodyl 10 MG ONCE ONE 03/03 1045 DC MO 03/03 1046 Ceftazidime 1,000 MG IQ8 03/02 0000 AC 03/03 IV 0826 Docusate Sodium 100 MG DAILY 03/02 900 AC 03/03 PO 0825 Duloxetine HCl 20 MG DAILY 03/02 09 AC 03/03 PO 0825 Enoxaparin Sodium 40 MG DAILY 03/02 900 AC 03/03 SC 0827 Finasteride 5 MG DAILY 03/02 900 AC 03/03 PO 824 Losartan Potassium 50 MG DAILY 03/02 900 AC 03/03 PO 08 Metoprolol Succinate 25 MG DAILY 03/02 900 AC 03/03 PO 08 Morphine Sulfate 2 MG Q4P PRN 03/01 2315 AC IV Nitroglycerin 0.4 MG DAILY 03/02 900 AC TOP Oxycodone/ 1 TAB Q6P PRN 03/01 2315 AC 03/02 Acetaminophen PO 1535 Polyethylene Glycol 17 GM DAILY PRN 03/02 2330 AC 03/02 PO 233 Senna 187 MG DAILY 03/02 900 AC 03/03 PO 08 Zolpidem Tartrate 10 MG QPM 03/02 2100 AC 03/02 PO 213 Last 24 Hrs of Lab/[place] Results Last 24 Hrs of Labs/Mics: Laboratory Tests 03/02/18 1549: Urine Color YEL, Urine Clarity CLEAR, Urine pH 6.0, Ur Specific [place] 1.015, Urine Protein NEG, Urine Ketones NEG, Urine Nitrite NEG, Urine Bilirubin NEG, Urine Urobilinogen 0.2, Ur Leukocyte Esterase SMALL H, Ur Microscopic SEDIMENT EXAMINED, Urine RBC RARE, Urine WBC 1-3 H, Ur Epithelial Cells RARE, Urine Bacteria RARE H, Urine Mucus RARE, Urine Hemoglobin TRACE-INTACT H, Urine Glucose NEG Assessment/Plan Assessment: Levi is a 73-year-old man was a past medical history of hypertension, coronary artery disease, BPH, ureteral stricture status post laser therapy in September 2017, recurrent UTIs, sent by his private urologist for a UTI of these experienced for 1 week which failed outpatient therapy with amoxicillin. He is admitted for treatment of his UTI with IV antibiotics after failure of outpatient therapy #UTI - resolving. Potentially prostatitis given pt history of prostate CA, radiation, symptoms, and difficulty to treat outpatient with Cipro and then Augmentin without resolution of symptoms. Will be discharged on bactrim PO for UTI/potential prostatitis #Constipation -Given bowel regimen -Ordered suppository today -Encouraged to hydrate DVT prophylaxis IV access Tolerating regular diet Disposition- to home today Problem List: 1. UTI (urinary tract infection) Pain Ratin Pain Location: na Pain Goal: Remain pain free Pain Plan: na Tomorrow's Labs & Rationales: na
[2018-03-03 08:26] VITALS: BP 126/72
[2018-03-03] MEDS ORDERED: AUGMENTIN 875-1 EACH PO (09:56)
--- NOTE | 2018-03-03 09:58 | Patient Discharge Instructions ---
Discharge Instructions General Discharge Information Special Instructions: - Please follow up with your urologist Dr. Lazo within 1-2 weeks of discharge. - Please follow up with your primary care physician within 1-2 weeks of discharge. Inform your primary care physician of this admission to [facility]. - Continue your current medications per discharge instructions. - Please watch for these problems: Fever, Chills, Nausea, Vomiting, Shortness of Breath, Productive Cough, Chest Pain/Discomfort, Abdominal Pain, Active Bleeding or Bloody urine/stool. Diet Continue normal diet: Yes Activity Full Activity/No Limits: Yes Acute Coronary Syndrome Inclusion Criteria At DC or during hospital stay patient has or had the following: ACS DIAGNOSIS No Discharge Core Measures Meds if any: Prescribed or Continued at Discharge Meds if any: NOT Prescribed or Continued at Discharge Congestive Heart Failure Inclusion Criteria At DC or during hospital stay patient has or had the following: CHF DIAGNOSIS No Discharge Core Measures Meds if any: Prescribed or Continued at Discharge Meds if any: NOT Prescribed or Continued at Discharge Cerebrovascular accident Inclusion Criteria At DC or during hospital stay patient has or had the following: CVA/TIA Diagnosis No Discharge Core Measures Meds if any: Prescribed or Continued at Discharge Meds if any: NOT Prescribed or Continued at Discharge Venous thromboembolism Inclusion Criteria VTE Diagnosis No VTE Type NONE VTE Confirmed by (Test) NONE Discharge Core Measures - Per Current guidelines, there needs to be overlap - treatment for the first 5 days of Warfarin therapy. - If discharged on Warfarin prior to 5 days of - overlap therapy, the patient will need to be - assessed for post discharge needs including - *Post discharge parental anticoagulation - *Warfarin and/or parental anticoagulation education - *Follow up date to check INR post discharge At least 5 days overlap therapy as Inpatient No Meds if any: Prescribed or Continued at Discharge Note: Overlap Therapy is Warfarin and Anticoagulant Meds if any: NOT Prescribed or Continued at Discharge
[2018-03-03] MEDS ORDERED: BACTRIM DS TAB1 EACH PO ×2 (10:05→10:35)
--- NOTE | 2018-03-03 11:39 | Discharge Summary ---
Visit Information Visit Dates Admission Date: 03/01/18 Discharge Date: 03/03/18 Hospital Course Course Attending Physician: Svitlana Decker MD Primary Care Physician: Vincent Hines MD Hospital Course: 72-year-old male history of coronary artery disease, recurrent urethral stricture s/p cystoscopy and urethral dilatation and recurrent UTIs presents with dysuria, penile pain, and urinary frequency for the past 1 week. Per the patient he has burning with urination for the past one week and was started on Amoxicillin by Dr. Lazo, which he has been taking without any relief. Last night his symptoms got worse, with dysuria (end of urination) and penile pain. He called Dr. Lazo in the morning who sent him in for further evaluation. Denies any Fever/chills, abdominal or back pain or Nausea/Vomiting. Patient is from [facility] and has been treated there with multiple abx including cefuroxime, ciprofloxacin and gentamicin. Has a history of pseudomonal infection sensitive to amikacin and gentamicin only. Vitals on admission were temp of 96.2, heart rate 70, respiratory rate 20, BP 11 /65 and O2 sats 97% on room air. Labs showed an anion gap of 17 and BUN of 51, otherwise unremarkable. Positive UA with leukocyte esterase and 50-25 WBCs. Renal ultrasound appeared normal. Patient was admitted to the general medicine service. Patient was placed on IV ceftazidime for 3 days, and urine cultures and urinalysis was sent. Patient remained afebrile and without leukocytosis. Patient improved clinically, although had one episode of burning urination day prior to discharge. Patient also had constipation, for which he was prescribed a bowel regimen, and a suppository. UA had small leukoesterase, trace bacteria. Urine culture had no growth. Suspicion for acute bacterial prostatitis given patient's difficult to treat UTI, even though he had good clinical improvement during admission, and he was discharged with p.o. Bactrim to complete a 14 day course with instructions to follow-up with Dr. Lazo his outpatient urologist if symptoms remit. Allergies: Coded Allergies: No Known Allergies (04/01/16) Significant Procedures: Renal ultrasound on March 01: Normal, no hydronephrosis noted. Large post void residue US RETROPERITONEAL COMPLETE (RENAL) CLINICAL INFORMATION: Persistent UTI. COMPARISON: Renal ultrasound March 10, 2016 TECHNIQUE: Real-time imaging of the kidneys and bladder. FINDINGS: RIGHT KIDNEY: 11.9 x 5.4 x 5.7 cm (SAG x AP x TRV). The kidney is normal in size, contour, and echogenicity. Renal cortical thickness is normal. No calculi or focal parenchymal lesions. No hydronephrosis. LEFT KIDNEY: 12.1 x 6.5 x 4.9 cm (SAG x AP x TRV). The kidney is normal in size, contour, and echogenicity. Renal cortical thickness is normal. No calculi or focal parenchymal lesions. No hydronephrosis. BLADDER: Well-distended and normal. Bilateral ureteral jets are demonstrated. Prevoid bladder volume is 342 mL. Postvoid bladder volume is 155 mL. The prostate could not be visualized-no prostatic tissue is seen. IMPRESSION: The kidneys appear normal. There is a large 155 cc post void residual. The prostate was not visualized.. Pertinent Lab Results: No leukocytosis on CVC, urine culture without growth to date, urinalysis with small leuk esterase and trace bacteria Disposition Summary Disposition Principal Diagnosis: Recurrent UTI failed outpatient treatment Additional Diagnosis: Constipation Discharge Disposition: home or self care Discharge Instructions General Discharge Information Code Status: Full Code Patient's Diet: As tolerated Patient's Activity: As tolerated Follow-Up Instructions/Appts: - Please follow up with your urologist, Dr. Lazo, within 1-2 weeks of discharge. - Please follow up with your primary care physician within 1-2 weeks of discharge. Inform your primary care physician of this admission to [facility]. - Continue your current medications per discharge instructions. - Please watch for these problems: Fever, Chills, Nausea, Vomiting, Shortness of Breath, Productive Cough, Chest Pain/Discomfort, Abdominal Pain, Active Bleeding or Bloody urine/stool. Medications at Discharge Discharge Medications: Continue taking these medications: Atorvastatin Calcium (Atorvastatin Calcium) 80 MG TABLET 1 Tablet ORAL DAILY Comments: Last Taken: 03/02/18 Time: 4:30 PM Valsartan/Hydrochlorothiazide (Valsartan-Hctz 160-25 MG Tab) 160 MG-25 MG TABLET 1 Tablet ORAL DAILY Comments: GIVEN [place] IN HOSPITAL Last Taken: 03/03/18 Time: 8:30 AM Duloxetine HCl (Duloxetine HCl) 20 MG CAPSULE. 1 Capsule ORAL DAILY Comments: Last Taken: 03/03/18 Time: 8:30 AM Zolpidem Tartrate (Ambien) 10 MG TABLET 1 Tablet ORAL as needed for SLEEP Comments: Last Taken: 03/02/18 Time: 9:30 PM Metoprolol Succ XL (Toprol XL) 25 MG TAB 1 Tablet ORAL DAILY Comments: Last Taken: 03/03/18 Time: 8:30 AM Finasteride (Finasteride) 5 MG TABLET 1 Tablet ORAL DAILY Qty = 90 Comments: Last Taken: 03/03/18 Time: 8:30 AM Nitroglycerin (Nitroglycerin Patch) 0.4 MG/HOUR PATCH.TD24 1 Patch On the skin DAILY Qty = 30 Comments: PT REFUSED, NOT GIVEN IN HOSPITAL Oxybutynin Chloride (Oxybutynin Chloride) 5 MG TABLET 1 Tablet ORAL DAILY Qty = 30 Start taking the following new medications: Sulfamethoxazole/Trimethoprim (Bactrim Ds Tablet) 800 MG-160 MG TABLET 1 Tablet ORAL TWICE DAILY Qty = 8 No Refills Instructions: . Copies To: Donny DOMINIQUE,Vincent Frausto Attending MD Review Statement Documenting Attending: Jeronimo DOMINIQUE,Svitlana Other Findings: Patient with urinary tract infection symptoms with small leukocyte esterase in urine. Urine culture negative. Patient received antibitoics as outpatient. He was started on iv ceftazidime for UTI. I have high clinical suspicion for acute prostatits as he has history of prostate cancer with radiaiotn therapy. Will give him PO abx to complete 14 days course. He needs to follow up with urology Dr Lazo as outpatient in 1-2 weeks of discharge.
== END 2018-03-03 12:05 | DRG 690 ==
LOC: ERH 18:13 → ERHI 20:42 → 2NA 20:42 → ENRESERV 21:54 → ENTRNSPT 22:30 → EDTRNSPTSTS 22:34 → EDTRNSPT 22:34 → 2NA 22:41 → CMPTRNSPT 22:48 → 2NA 03-02 11:10 → ENPENDDIS 03-03 10:40 → 2NA 03-03 12:05
PROVIDERS: Internal Medicine
DX: N39.0 Urinary tract infection, site not specified (principal); I10 Essential (primary) hypertension; I25.10 Atherosclerotic heart disease of native coronary artery without angina pectoris; N40.0 Benign prostatic hyperplasia without lower urinary tract symptoms; Z95.2 Presence of prosthetic heart valve; F17.200 Nicotine dependence, unspecified, uncomplicated; K59.00 Constipation, unspecified
CPT/HCPCS: 2NASP; 36592; 76775; 81001; 82436; 87040; 87086; J0696; J0713; J1650

== ENCOUNTER 2018-03-05 07:19 | Emergency (ER) | payer OTHER ==
[~2018-03-05] VITALS: Ht 180.3 cm; Wt 83.5 kg
[~2018-03-05 07:19] MED LIST changes: +AUGMENTIN 875-1 EACH PO; +BACTRIM DS TAB1 EACH PO
--- NOTE | 2018-03-05 08:12 | ED GI/GU/ABDOMINAL COMPLAINT ---
History of Present Illness General Chief Complaint: General Adult Stated Complaint: "CANT URINATE" Source: patient Exam Limitations: no limitations Vital Signs & Intake/Output Vital Signs & Intake/Output Vital Signs Date Time Temp Pulse Resp B/P B/P Pulse O2 O2 Flow FiO2 Mean Ox Delivery Rate 03/05 0859 99.0 90 18 137/70 100 Room Air 03/05 0753 98 Room Air 03/05 0726 98.6 79 18 127/64 98 Room Air Allergies Coded Allergies: No Known Allergies (04/01/16) Reconcile Medications Atorvastatin Calcium 80 MG TABLET 1 TAB PO DAILY CHOLESTEROL (Reported) Duloxetine HCl 20 MG CAPSULE.DR 1 CAP PO DAILY ANXIETY (Reported) Finasteride 5 MG TABLET 1 TAB PO DAILY BPH (Reported) Metoprolol Succ XL (Toprol XL) 25 MG TAB 1 TAB PO DAILY HEART/BP (Reported) Nitroglycerin (Nitroglycerin Patch) 0.4 MG/HOUR PATCH.TD24 1 PAT TOP DAILY HEART (Reported) Oxybutynin Chloride 5 MG TABLET 1 TAB PO DAILY BLADDER (Reported) Sulfamethoxazole/Trimethoprim (Bactrim Ds Tablet) 800 MG-160 MG TABLET 1 TAB PO BID recurrent UTi . Valsartan/Hydrochlorothiazide (Valsartan-Hctz 160-25 MG Tab) 160 MG-25 MG TABLET 1 TAB PO DAILY BP (Reported) Zolpidem Tartrate (Ambien) 10 MG TABLET 1 TAB PO PRN SLEEP (Reported) Triage Note: 73 YO MALE TO TRIAGE FOR EVAL OF "NOT BEING ABLE TO URNAITE SINCE WEDNESDAY" REPORTS WAS SEEN HERE AND DX WITH A UTI ON WEDNESDAY AND PLACED ON ANTIBIOTICS. REPORTS ONLTY HAS PAIN WHEN TRYING TO URINATE. Triage Nurses Notes Reviewed? yes Onset: Gradual Duration: constant Timing: recent history Severity Numbers: 5 Radiation: no radiation HPI: Patient is a 73-year-old male with a past medical history of CAD, urethral strictures status post cystoscopy, urethral dilation and recurrent UTIs who presents emergency room stating that since his discharge 2 days ago he has been unable to urinate. Patient does state that he's been able tolerate drinking and eating patient has mild nausea and mild suprapubic abdominal pain. Denies any fever chills \\ Patient is compliant with his antibiotics (Onel CARNES,Jose) Past History Travel History Traveled to [place] past 21 day No Medical History Any Pertinent Medical History? 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 No (Jose Butler) Review of Systems Review of Systems Constitutional: Reports: no symptoms. EENTM: Reports: no symptoms. Respiratory: Reports: no symptoms. Cardiovascular: Reports: no symptoms. GI: Reports: see HPI. Genitourinary: Reports: see HPI. Musculoskeletal: Reports: no symptoms. Skin: Reports: no symptoms. Neurological/Psychological: Reports: no symptoms. Hematologic/Endocrine: Reports: no symptoms. Immunologic/Allergic: Reports: no symptoms. All Other Systems: Reviewed and Negative (Jose Butler) Physical Exam Physical Exam General Appearance: no apparent distress, alert, comfortable Head: atraumatic Eyes: Bilateral: normal appearance. Neck: normal inspection Respiratory: no respiratory distress Cardiovascular: regular rate/rhythm Gastrointestinal: normal bowel sounds, soft, SUPRAPUBIC PAIN NO REBOUND TENDERNESS NO PERITONEAL PAIN Neurologic/Psych: no motor/sensory deficits, awake, alert Skin: intact, normal color, warm/dry Core Measures ACS in differential dx? No Sepsis Present: No Sepsis Focused Exam Completed? No (Jose Butler) Progress Differential Diagnosis: appendicitis, bowel obstruction, colon cancer, cholecystitis, diverticulitis, epididymitis, esophageal varices, gastritis, hepatitis, hernia, hemorrhoids, ischemic bowel, inflamm bowel dis, orchitis, pancreatitis, prostatitis, peptic ulcer, PUD/GERD, perforated viscous, pyelonephritis, SBO, testicular torsion, ureterolithiasis, urinary retention, urethritis, UTI/pyelo Initial ED EKG: none (Jose Butler) Plan of Care: Orders Procedure Date/time Status Ferrari, Insertion/Removal/Asses 03/05 818 Active CULTURE,URINE 03/05 818 Active URINALYSIS 03/05 818 Active Microbiology 07/14 0818 URINE ROUT: Urine Culture - ORD Patient upon initial presentation is resting comfortably at bedside no apparent distress patient is appropriate tenderness for urethral stricture concerns and inability to urinate discussed patient with Dr. Lazo who advised patient to be placed with an 18 [place] catheter and he will call the patient for scheduling of a TURP Nursing staff does note that bladder scan indicates approximately 750 mL of fluid Nursing staff does note that after multiple attempts of Ferrari patient with daily that there was significant resistance and stricture concerns discussed patient with Dr. Lazo in which he states that he is on his way to the emergency room - 0900 Please note that after the attempts of the Ferrari placement patient tried to urinate which he urinated approximately 650 mL of straw-colored urine and had complete resolution of his symptoms discussed patient with Dr. Lazo who advised patient to be placed with Flomax however he is on finasteride Upon discharge patient looks well no apparent distress and will comply with discharge instructions and had no questions (Jose Butler) (Nisha DOMINIQUE,Hilario Schultz) Departure Departure Disposition: HOME OR SELF CARE Condition: Stable Clinical Impression Primary Impression: Inability to urinate Referrals: Vincent Hines MD (PCP/Family) Additional Instructions: As discussed continue home medications especially your antibiotics YOU WILL received a phone call from Dr. Lazo to schedule the TURP procedure, if symptoms worsen return to emergency room Departure Forms: Customer Survey General Discharge Information (Jose Butler) PA/FORK TRUCK DRIVER Co-Sign Statement Statement: ED Attending supervision documentation- [X] I saw and evaluated the patient. I have also reviewed all the pertinent lab results and diagnostic results. I agree with the findings and the plan of care as documented in the PA's/FORK TRUCK DRIVER's documentation. Patient presents for evaluation of inability to urinate. I evaluated the patient after he spontaneously voided about 600 mL of reddish colored urine. At that point the patient's physical examination was unremarkable and he was quite comfortable [] I have reviewed the ED Record and agree with the PA's/FORK TRUCK DRIVER's documentation. [] Additions or exceptions (if any) to the PAs/FORK TRUCK DRIVER's note and plan are summarized below: [] (Nisha DOMINIQUE,Hilario Schultz)
[2018-03-05 08:59] VITALS: BP 137/70
== END 2018-03-05 09:25 ==
LOC: ERH 07:19
DX: R33.9 Retention of urine, unspecified (principal)
CPT/HCPCS: 81001; 87086